=== PATIENT | female | born 1995 | race Caucasian/White ===

== ENCOUNTER 2017-05-10 15:10 | Emergency (ER) | payer OTHER ==
[2017-05-10] MEDS ORDERED: FENTANYL CITRATE INJ/PF 100 MCG/2 ML AMPUL IV ONE (16:02)
--- NOTE | 2017-05-10 16:02 | ER Document Report ---
ED Neck/Back Problem - General Chief Complaint: Back Pain Stated Complaint: BACK PAIN Time Seen by Provider: 05/10/17 15:37 Mode of Arrival: Medic Information source: Patient, Relative Notes: Patient is a 21-year-old female with a history of back issues after a track and field coach fell on her while she was in a bent over position tying her shoes approximately 2 years ago. Patient has had surgery, partial discectomy on her back and just had a stimulator placed for pain approximately 5 weeks ago. Patient states that she was using the restroom when she went to stand up from the toilet and had immediate pain in her low back that caused her to fall to the floor. Patient states that she just laid on the floor and called for her sister because she felt like something was wrong. She denies any numbness, tingling, loss of bladder or bowel function. She is on muscle relaxers every night but does not take any narcotics for pain. Patient is from [place] and visiting her sister here in [place] at this time. TRAVEL OUTSIDE OF THE [place] IN LAST 30 DAYS: No - Related Data Allergies/Adverse Reactions: amphetamine [From Adderall] Allergy (Verified 05/10/17 16:19) dextroamphetamine [From Adderall] Allergy (Verified 05/10/17 16:19) pentobarbital [From Nembutal Sodium] Allergy (Verified 05/10/17 16:19) Past Medical History - General Information source: Patient, Relative - Social History Smoking Status: Never Smoker Family History: Reviewed & Not Pertinent Review of Systems - Review of Systems Constitutional: No symptoms reported EENT: No symptoms reported Cardiovascular: No symptoms reported Respiratory: No symptoms reported Gastrointestinal: No symptoms reported Genitourinary: No symptoms reported Female Genitourinary: No symptoms reported Musculoskeletal: See HPI Skin: No symptoms reported Hematologic/Lymphatic: No symptoms reported Neurological/Psychological: No symptoms reported Physical Exam - Vital signs Vitals: Resp 20 05/10/17 15:20 - Notes Notes: PHYSICAL EXAMINATION: GENERAL: Obviously uncomfortable, tearful but in no acute distress. HEAD: Atraumatic, normocephalic. EYES: Pupils equal round and reactive to light, extraocular movements intact, sclera anicteric, conjunctiva are normal. NECK: Normal range of motion, supple without lymphadenopathy LUNGS: CTAB and equal. No wheezes rales or rhonchi. HEART: Regular rate and rhythm without murmurs ABDOMEN: Soft, no tenderness. No guarding, no rebound BACK: Lumbar vertebral tenderness, decreased range of motion secondary to pain, two vertical scars noted to the lumbar area GI/: no CVA tenderness EXTREMITIES: Good capillary refill and pulses distally, normal range of motion, no pitting edema. No cyanosis. Rectal: Normal tone, normal tenderness, good sensation NEUROLOGICAL: Cranial nerves grossly intact. Normal sensory/motor exams. PSYCH: Normal mood, normal affect. SKIN: Warm, Dry, normal turgor, no rashes or lesions noted Course - Re-evaluation Re-evalutation: 05/11/17 20:36 CT of the lumbar spine reports disc protrusions at L4 and L5, L5 and S1. Patient states that these are old. I did speak to patient's mother in [place] on the phone who did not want her started on any steroids due to reactions to steroids in the past. Patient feels better after multiple doses of IV pain medication here and is able to move around much easier. Patient will go home with pain medication, muscle relaxers to follow-up in [place] with her spine doctor. Sister, patient and mother all happy with this plan. Patient is neurologically intact. - Vital Signs Vital signs: Temp Pulse Resp BP Pulse Ox 98.2 F 99 H 18 132/84 H 98 05/10/17 20:38 05/10/17 20:38 05/10/17 20:38 05/10/17 20:38 05/10/17 20:38 - Laboratory Result Diagrams: 05/10/17 17:30 05/10/17 17:30 Laboratory results interpreted by me: 05/10/17 05/10/17 17:30 17:30 RBC 5.30 H MCV 79 L MCH 26.0 L RDW 14.5 H Chloride 111 H Glucose 68 L Discharge - Discharge Clinical Impression: Low back pain Qualifiers: Chronicity: acute Back pain laterality: midline Sciatica presence: without sciatica Qualified Code(s): M54.5 - Low back pain Condition: Stable Disposition: HOME, SELF-CARE Additional Instructions: Return immediately for any new or worsening symptoms. Follow up with primary care provider, call tomorrow to make followup appointment. Prescriptions: Cyclobenzaprine HCl [Flexeril 10 mg Tablet] 10 mg PO TIDP PRN #15 tab PRN Reason: Oxycodone HCl/Acetaminophen [Percocet 5-325 mg Tablet] 1 - 2 tab PO Q4H PRN #15 tablet PRN Reason:
[2017-05-10 17:42] LABS: ABSOLUTE EOSINOPHILS # (AUTO) 0.2 10^3/uL (0.0-0.6); ABSOLUTE LYMPHOCYTES (AUTO) 2.3 10^3/uL (0.5-4.7); ABSOLUTE MONOCYTES (AUTO) 0.6 10^3/uL (0.1-1.4); ABSOLUTE NEUT (AUTO) 5.8 10^3/uL (1.7-8.2); BASOPHILS % (AUTO) 0.4 % (0-2); EOSINOPHILS % (AUTO) 2.4 % (0-6); HEMATOCRIT 41.7 % (36.0-47.0); HEMOGLOBIN 13.8 g/dL (12.0-15.5); LYMPHOCYTES % (AUTO) 26.1 % (13-45); MEAN CORPUSCULAR VOLUME 79 fl (80-97); MONOCYTES % (AUTO) 6.8 % (3-13); PLATELET COUNT 270 10^3/uL (150-450); RED CELL DISTRIBUTION WIDTH 14.5 % (11.5-14.0); SEGMENTED NEUTROPHILS % (AUTO) 64.3 % (42-78); TOTAL CELLS COUNTED % (AUTO) 100 %
[2017-05-10 17:50] LABS: ANION GAP 10 (5-19); BLOOD UREA NITROGEN 11 mg/dL (7-20); CARBON DIOXIDE 22 mmol/L (22-30); CHLORIDE 111 mmol/L (98-107); GLUCOSE 68 mg/dL (75-110); POTASSIUM 3.6 mmol/L (3.6-5.0); SODIUM 142.6 mmol/L (137-145)
[2017-05-10] MEDS ORDERED: HYDROMORPHONE HCL INJ/PF 2 MG/ML AMPULE IV ONE ×2 (17:56→19:33)
[2017-05-10] MEDS ORDERED: CYCLOBENZAPRINE HCL 10 MG TABLET PO ONE (18:44)
--- NOTE | 2017-05-10 18:49 | RADIOLOGY REPORT (SQ) ---
EXAM DESCRIPTION: CT LUMBAR SPINE WITHOUT COMPLETED DATE/TIME: 05/10/2017 6:30 pm REASON FOR STUDY: hx surgery, stimulator, acute onset sharp pain COMPARISON: None. TECHNIQUE: Axial images acquired through the lumbar spine without intravenous contrast. Images revi ewed with lung, soft tissue and bone windows. Reconstructed coronal and sagittal MPR images reviewed . All images stored on PACS. All CT scanners at this facility use dose modulation, iterative reconstruction, and/or weight based d osing when appropriate to reduce radiation dose to as low as reasonably achievable (ALARA). [facility]: Dose Right [facility]: CareDose [facility]: Dose Right [facility]: Teradose 4D [facility]: [employer] RADIATION DOSE: mGy. LIMITATIONS: None. FINDINGS: SEGMENTATION: Normal. No transitional anatomy. ALIGNMENT: Normal. VERTEBRAL BODIES: No fractures. No dislocation. No acute findings. DISCS: Study limited by lack of intrathecal contrast. There appear to be disc protrusions at the L4- L5 and L5-S1 levels. PEDICLES, TRANSVERSE PROCESSES: No fractures. No dislocation. No acute finding s. FACETS, POSTERIOR ELEMENTS: No fractures. No dislocation. No spinal stenosis. HARDWARE: Electrodes related to a dorsal column stimulator are identified extending superiorly into t he thoracic spine VISUALIZED RIBS: No fractures. SOFT TISSUES: No significant or acute finding in adjacent soft tissues. OTHER: No other significant finding. IMPRESSION: There appears to be disc protrusions at the L4-L5 and L5-S1 levels as noted above. Clin ical correlation is recommended. Other findings as noted above. TECHNICAL DOCUMENTATION: JOB ID: [id number] Quality ID # [id number]: Final reports with documentation of one or more dose reduction techniques (e.g., Au tomated exposure control, adjustment of the mA and/or kV according to patient size, use of iterative reconstruction technique) 2010 [employer]- All Rights Reserved Reading location - IP/workstation name: [email or web address]
[2017-05-10] MEDS ORDERED: HYDROCODONE/ACETAMINOPHEN 5-325 MG (6 TAB/ER DISP) PO PRN (19:49)
[2017-05-10] MEDS ORDERED: ONDANSETRON 4 MG TAB.RAPDIS PO ONE (20:20)
[2017-05-10] MEDS ORDERED: ONDANSETRON 4 MG TAB.RAPDIS ONE (20:21)
[2017-05-10 20:39] VITALS: BP 132/84
== END 2017-05-10 20:39 | disposition home or self-care (01) ==
LOC: ER 15:10
DX: M54.5 Low back pain (principal); Z98.890 Other specified postprocedural states
CPT/HCPCS: 96376; 99284; 96374; 96375; 36415; 84703; 85025; 80048; 72131; S0119; J3010; J1170